=== PATIENT | female | born 1995 | race American Indian/Alaskan Native ===

== ENCOUNTER 2020-09-10 10:33 | Emergency (ER) | payer MEDICAID ==
[2020-09-10 11:19] VITALS: BP 130/91
--- NOTE | 2020-09-10 11:49 | Event Note ---
ED Screening Note Date of service: 09/10/20 Time: 11:46 ED Screening Note: 24-year-old -[place] female presents to the emergency room complaining of back pain with her menstrual cycle. Patient reports her back pain is worse while at work and standing for period of time. Patient denies any injury. She reports no relief from naproxen. Last dose was on . Menstrual period started 09/05/2020. This initial assessment/diagnostic orders/clinical plan/treatment(s) is/are subject to change based on patients health status, clinical progression and re- assessment by fellow clinical providers in the ED. Further treatment and workup at subsequent clinical providers discretion. Patient/guardian urged not to elope from the ED as their condition may be serious if not clinically assessed and managed. Initial orders include:
[2020-09-10 12:55] LABS: Bacteria,Urine 1+ /HPF (Negative); Bilirubin,Urine NEG (Negative); Blood,Urine SM (Negative); Color,Urine Yellow (Yellow); Mucus,Urine 1+ /HPF; Triple Phosphate Crystal,Urine FEW; Urobilinogen,Urine < 2.0 mg/dL (<2.0)
[2020-09-10 13:07] LABS: Basophils % (Auto) 0.5 % (0.0-1.8); Eosinophils # (Auto) 0.4 K/mm3 (0.0-0.4); Eosinophils % (Auto) 9.2 % (0.0-4.3); Hematocrit 47.7 % (30.3-42.9); Hemoglobin 15.9 gm/dl (10.1-14.3); Lymphocytes # (Auto) 1.5 K/mm3 (1.2-5.4); Lymphocytes % (Auto) 38.4 % (13.4-35.0); Mean Corpuscular HGB Conc 33 % (30-34); Mean Corpuscular Volume 90 fl (79-97); Monocytes # (Auto) 0.4 K/mm3 (0.0-0.8); Monocytes % (Auto) 10.6 % (0.0-7.3); Platelet Count 206 K/mm3 (140-440); Red Blood Count 5.33 M/mm3 (3.65-5.03); Red Cell Distribution Width 13.7 % (13.2-15.2)
[2020-09-10] MEDS ORDERED: ACETAMINOPHEN 325 MG TAB PO ONE (14:32)
--- NOTE | 2020-09-10 14:45 | Emergency Department Report ---
ED Back Pain/Injury HPI - General Chief Complaint: Back Pain/Injury Stated Complaint: BACK PAIN/NAUSEA Time Seen by Provider: 09/10/20 11:46 Source: patient Limitations: No Limitations - History of Present Illness Initial Comments: 24-year-old female presents to the emergency room complaining of low back pain. Symptoms started 1 week ago at the start of her menstrual cycle. She denies any falls or injuries 09/05/20. She's currently taking Naprosyn with no relief. She denies any PMH . Similar Symptoms Previously: No Quality: aching Consistency: constant Improves With: none Worsens With: none Associated Symptoms: denies other symptoms. denies: difficulty walking, incontinence, fever/chills, nausea/vomiting - Related Data Previous Rx's Medication Instructions Recorded Last Taken Type cephALEXin [Keflex] 500 mg PO Q12HR 7 Days #14 cap 09/10/20 Unknown Rx Allergies Allergy/AdvReac Type Severity Reaction Status Date / Time No Known Allergies Allergy Unverified 08/29/15 11:43 ED Review of Systems ROS: Stated complaint: BACK PAIN/NAUSEA Other details as noted in HPI Comment: All other systems reviewed and negative Constitutional: no symptoms reported. denies: chills, fever, malaise ENT: denies: ear pain, throat pain Respiratory: denies: cough, shortness of breath, wheezing Cardiovascular: denies: chest pain, palpitations, dyspnea on exertion, paroxysmal nocturnal dyspnea Endocrine: no symptoms reported Gastrointestinal: denies: abdominal pain, nausea, constipation Genitourinary: dysuria, frequency Musculoskeletal: back pain Neurological: as per HPI, weakness Hematological/Lymphatic: as per HPI ED Past Medical Hx - Past Medical History Previous Medical History?: Yes Additional medical history: Back pain, menstrual cramps and back pain worsens with menses. Vaginal delivery 10-01-2019 - Surgical History Past Surgical History?: No - Social History Smoking Status: Never Smoker Substance Use Type: None - Medications Home Medications: Home Medications Medication Instructions Recorded Confirmed Last Taken Type cephALEXin [Keflex] 500 mg PO Q12HR 7 Days #14 cap 09/10/20 Unknown Rx ED Physical Exam - General Limitations: No Limitations General appearance: alert, in no apparent distress - Head Head exam: Present: normal inspection. Absent: atraumatic - Eye Eye exam: Present: normal appearance - ENT ENT exam: Present: normal exam. Absent: normal orophraynx, TM's normal bilaterally - Neck Neck exam: Present: normal inspection - Respiratory Respiratory exam: Present: normal lung sounds bilaterally - Cardiovascular Cardiovascular Exam: Present: regular rate, normal heart sounds - GI/Abdominal GI/Abdominal exam: Present: soft. Absent: distended, tenderness - Extremities Exam Extremities exam: Present: normal inspection, normal capillary refill - Back Exam Back exam: Present: normal inspection, CVA tenderness (R), CVA tenderness (L) - Neurological Exam Neurological exam: Present: alert, oriented X3 - Psychiatric Psychiatric exam: Present: normal affect - Skin Skin exam: Present: warm, dry, intact, normal color ED Course Vital Signs 09/10/20 11:18 Temperature 98.0 F Pulse Rate 119 H Respiratory 14 Rate Blood Pressure 130/91 O2 Sat by Pulse 100 Oximetry ED Medical Decision Making - Lab Data Result diagrams: 09/10/20 12:12 - Medical Decision Making 24-year-old female with complaints of low back pain dysuria and urinary frequency. She had no abdominal pain no nausea no no vomiting was negative. Urinalysis WBC is elevated. Plan to treat for UTI. Patient to follow-up with her primary care doctor. - Differential Diagnosis UTI low back strain kidney stone Critical Care Time: No Critical care attestation.: If time is entered above; I have spent that time in minutes in the direct care of this critically ill patient, excluding procedure time. ED Disposition Clinical Impression: UTI (urinary tract infection) Qualifiers: Urinary tract infection type: acute cystitis Hematuria presence: without hematuria Qualified Code(s): N30.00 - Acute cystitis without hematuria Disposition: - TO HOME OR SELFCARE Is pt being admited?: No Does the pt Need Aspirin: No Condition: Stable Instructions: Antibiotic Medicine, Adult, [id number], Urinary Tract Infection, Adult, [id number] Additional Instructions: Increase your oral oral intake drink at least 6 to 8 glasses of water a day per day pee after sex empty your bladder often. You can take [id number] Tylenol 2 tabs every 4-6 hours as needed for pain. Follow-up with your primary care doctor Prescriptions: cephALEXin [Keflex] 500 mg PO Q12HR 7 Days #14 cap Referrals: PRIMARY MD DANILO [Primary Care Provider] - 3-5 Days KECIA HOLMAN MD [Staff Physician] - 3-5 Days Time of Disposition: 14:48
== END 2020-09-10 14:56 | disposition home or self-care (01) ==
LOC: ED 10:33
DX: N39.0 Urinary tract infection, site not specified (principal)
CPT/HCPCS: 36415; 81001; 84702; 85025; 87086